=== PATIENT | male | born 1985 | race Caucasian/White ===

== ENCOUNTER 2020-06-05 15:40 | Emergency (ER) | payer OTHER ==
[~2020-06-05] VITALS: Ht 170.2 cm; Wt 118.2 kg
[2020-06-05 15:43] VITALS: BP 137/80
[2020-06-05 16:22] LABS: GLUCOSE,POINT OF CARE 146 MG/DL (70-110)
== END 2020-06-05 16:46 | disposition home or self-care (01) ==
LOC: EMS 15:50
DX: F41.9 Anxiety disorder, unspecified (principal); F12.90 Cannabis use, unspecified, uncomplicated; R00.2 Palpitations; F17.210 Nicotine dependence, cigarettes, uncomplicated
CPT/HCPCS: 82948; 82962; 99284